=== PATIENT | female | born 1975 | race African-American/Black ===

== ENCOUNTER → 2016-10-18 | Outpatient (CLI) | payer BC ==
[~2016-10-18] MED LIST: ALBUTEROL 0.5ML INH; ALBUTEROL20 ml INH; BREO ELLIPTA 21 EACH INH
[2016-10-18 13:23] LABS: CHOLESTEROL 184 mg/dL (0-200); GLUCOSE FASTING 77 mg/dL (70-110); HDL CHOLESTEROL 70 mg/dL (35-95); LDL CHOLESTEROL 106 mg/dL (-130); LDL/HDL RATIO 2 RATIO (0-4); TRIGLYCERIDES 41 mg/dL (10-160)
== END | disposition home or self-care (01) ==
LOC: CLAB 11:53
PROVIDERS: Surgery
DX: E66.01 Morbid (severe) obesity due to excess calories (principal)
CPT/HCPCS: 36415; 80061; 82947

== ENCOUNTER → 2016-10-18 | Outpatient (CLI) | payer SELFPAY | END | disposition home or self-care (01) | LOC: CBAR 07:41 | DX: E66.01 Morbid (severe) obesity due to excess calories (principal) | CPT/HCPCS: 76000 ==